=== PATIENT | female | born 1955 | race Caucasian/White ===

== ENCOUNTER → 2017-09-12 | Outpatient (CLI) | payer OTHER, SELFPAY | LOC: M RAD 07:59 | DX: Z12.31 Encounter for screening mammogram for malignant neoplasm of breast (principal) | CPT/HCPCS: 77067 ==

== ENCOUNTER → 2018-09-13 | Outpatient (CLI) | payer OTHER ==
--- NOTE | 2018-09-13 13:01 | REPMRS ---
Patient History The patient states she had a clinical breast exam in 2017. Family history of unknown cancer at age 77 in mother, colorectal cancer at age 60 in maternal aunt, unknown cancer at age 60 in paternal grandfather. Took hormonal contraceptives for 1 year. Digital Mammo Screening Bilat: September 13, 2018 - Exam #: [id number] Bilateral CC and MLO view(s) were taken. Technologist: Davida Wilson, Technologist Prior study comparison: September 12, 2017, bilateral digital mammo screening bilat performed at [facility]. August 04, 2016, left breast digital mammo diagnostic unilateral performed at [facility]. July 11, 2016, digital woman screen mammo, performed at [facility]. July 08, 2015, digital woman screen mammo, performed at [facility]. FINDINGS: There are scattered fibroglandular densities. There is a moderate amount of residual fibroglandular tissue which is fairly symmetric. There is no interval development of dominant mass, architectural distortion, or clustered microcalcification typical of malignancy. There has been no change in the appearance of the mammogram from the prior studies. 3-D tomosynthesis shows no additional findings. Assessment: BI-RADS/ACR category 1 mammogram. Negative. Recommendation Routine screening mammogram of both breasts in 1 year (for women over age 40). This patient's Lifetime Breast Cancer RIsk is estimated at 9.6 %. This mammogram was interpreted with the aid of an FDA-approved computer-aided dectection system. Electronically Signed By: Boby Linda MD 09/13/18 1367
== END ==
LOC: M RAD 10:21
PROVIDERS: ATTEND Internal Medicine
DX: Z12.31 Encounter for screening mammogram for malignant neoplasm of breast (principal); Z80.0 Family history of malignant neoplasm of digestive organs

== ENCOUNTER → 2019-11-04 | Outpatient (CLI) | payer SELFPAY ==
--- NOTE | 2019-11-04 09:27 | REP ---
BILATERAL SCREENING DIGITAL MAMMOGRAM WITH 3D TOMOSYNTHESIS: There are no palpable abnormalities or other breast complaints. The the patient states she had a clinical breast examination May,. The Tyrer-Cuzick Lifetime Breast Cancer Risk Score is: 9.2% . Comparison is 07/08/2015. There are scattered areas of fibroglandular density. There is no dominant mass, micro calcific cluster or architectural distortion that would indicate malignancy. There are no additional findings on 3D tomosynthesiss. There is no change from the prior study. Impression: BIRADS/ACR category 1 mammogram. Negative. Recommendation: Routine annual screening mammography. This mammogram was interpreted with the aid of a FDA approved computer-aided detection system. A. Negative mammogram reports should not delay biopsy if a dominant or clinically suspicious mass is present. B. Not all breast cancers are identified by mammography or tomosynthesis. C. Adenosis and dense breasts may obscure an underlying neoplasm. Patient letter M1. Electronically Signed by Bhanu Turpin MD 11/04/2019 09:19 A
== END ==
LOC: M WHC 07:46
PROVIDERS: ATTEND Internal Medicine
DX: Z12.31 Encounter for screening mammogram for malignant neoplasm of breast (principal)

== ENCOUNTER → 2020-11-06 | Outpatient (CLI) | payer SELFPAY ==
--- NOTE | 2020-11-06 13:46 | REPMRS ---
Patient History The patient states she had a clinical breast exam in 2019. Family history of unknown cancer at age 77 in mother, colorectal cancer at age 60 in maternal aunt, unknown cancer at age 60 in paternal grandfather. Took hormonal contraceptives for 1 year. Digital Woman Screen Mammo: November 06, 2020 - Exam #: [id number] Bilateral CC and MLO view(s) were taken. Technologist: Ade Hernandez, Technologist Prior study comparison: November 04, 2019, bilateral digital woman screen mammo performed at [facility]. September 13, 2018, bilateral digital mammo screening bilat, performed at [facility]. September 12, 2017, bilateral digital mammo screening bilat, performed at [facility]. FINDINGS: There are scattered fibroglandular densities. The Volpara volumetric breast density category is:B. There has been no change in the appearance of the mammogram from the prior studies. There is a mild amount of scattered fibroglandular density which is fairly symmetric. There is no interval development of dominant mass, architectural distortion, or grouped microcalcification suggestive of malignancy. 3-D tomosynthesis shows no additional findings. Assessment: BI-RADS/ACR category 1 mammogram. Negative Mammogram. Recommendation Routine screening mammogram of both breasts in 1 year (for women over age 40). This patient's [facility] Lifetime Breast Cancer Risk is estimated at 8.7 %. This mammogram was interpreted with the aid of an FDA-approved computer-aided dectection system. Electronically Signed By: Boby Linda MD 11/06/20 0504
--- NOTE | 2020-11-06 13:59 | DEXAMM ---
INDICATION: Z13.820 SCR FOR OSTEOPOROSIS. COMPARISON: 03/28/2008. TECHNIQUE: Bone density was measured using dual-energy x-ray absorptiometry (DEXA). FINDINGS: AP SPINE L1-L4 BMD 1.117 g/cm2 Young Adult T-Score -0.5 Age Matched Z-Score 1.1. LT FEMUR, TOTAL BMD 0.817 g/cm2 Young Adult T-Score -1.5 Age Matched Z-Score -0.2. LT NECK BMD 0.827 g/cm2 Young Adult T-Score -1.5 Age Matched Z-Score 0.0. RT FEMUR, TOTAL BMD 0.885 g/cm2 Young Adult T-Score -1.0 Age Matched Z-Score 0.3. RT NECK BMD 0.948 g/cm2 Young Adult T-Score -0.6 Age Matched Z-Score 0.9. IMPRESSION: There is normal bone density of the spine. There is low bone density of the left hip. There is normal bone density of the right hip. The density of the spine has decreased 9.0% since the initial exam on 03/28/2008. The density of the left hip has decreased 14.1% since initial exam on 03/28/2008. The density of the right hip has decreased 9.7% since the initial exam on 03/28/2008. FOLLOW-UP: Recommendation for the next bone density exam: 2 years. <Electronically signed by Bhanu Cormier > 11/06/20 [id number]
== END ==
LOC: M WHC 12:27
PROVIDERS: ATTEND Internal Medicine
DX: Z12.31 Encounter for screening mammogram for malignant neoplasm of breast (principal); Z13.820 Encounter for screening for osteoporosis; Z80.0 Family history of malignant neoplasm of digestive organs; M85.852 Other specified disorders of bone density and structure, left thigh

== ENCOUNTER → 2020-11-18 | Outpatient (REF) | payer SELFPAY | LOC: M LAB REF 16:17 | PROVIDERS: ATTEND Internal Medicine | DX: M15.9 Polyosteoarthritis, unspecified (principal) ==

== ENCOUNTER → 2020-12-03 | Outpatient (CLI) | payer SELFPAY ==
--- NOTE | 2020-12-03 19:15 | REP ---
INDICATION: PAIN. COMPARISON: None. TECHNIQUE: Bilateral hips: AP and frogleg views of the right hip and AP and frog-leg views of the left hip. FINDINGS: Right hip AP and frogleg views: Mineralization is normal. There is joint space narrowing compatible with arthropathy. No osteophytic formation is identified. There is no flattening or deformity of the femoral head. There is no fracture or dislocation. Left hip AP and frog-leg views: There is joint space narrowing. There is no femoral head flattening or deformity. There is no osteophytic formation. There is no fracture or dislocation. IMPRESSION: Bilateral hip nonspecific arthropathy. <Electronically signed by Bhanu Turpin > 12/03/20 [id number]
== END ==
LOC: M WUC 14:56
PROVIDERS: ATTEND Internal Medicine
DX: M25.551 Pain in right hip (principal)

== ENCOUNTER → 2021-01-08 | Outpatient (CLI) | payer SELFPAY ==
[~2021-01-08] MED LIST: ISOVUE-300 61% 50ML VIAL As Ordered ONE; LIDOCAINE 1% MDV 20ML VIAL As Ordered ONE; TRIAMCINOLONE ACETONIDE SUSP 40 MG/ML VIAL (J3301) As Ordered ONE
--- NOTE | 2021-01-08 17:26 | REP ---
INDICATION: OSTEOARTHRITIS RIGHT HIP. COMPARISON: None. TECHNIQUE: The procedure was performed under the direct supervision of Dr. Cormier. The benefits and risks including but not limited to pain infection and bleeding and anaphylaxis were explained to the patient and informed consent was obtained. The right femoral neck was localized using fluoroscopic guidance. The skin was prepped and draped in a sterile fashion. 1% lidocaine was used as a local anesthetic. Using fluoroscopic guidance, and last image hold technology, a 22-gauge spinal needle was inserted and advanced to the femoral neck. 0.5 ml of Isovue-300 was injected to verify placement. Six ml of a solution containing 5 ml of 1% Xylocaine and 1 mL of Kenalog 40 mg mg was injected. The needle was then removed. The patient tolerated the procedure well and there were no immediate complications. Less than 6 seconds of fluoro time was utilized for this procedure. FINDINGS: None IMPRESSION: Fluoro guidance for right hip injection. <Electronically signed by Jacinto Simental > 01/08/21 1514 <Electronically signed by Bhanu Cormier > 01/08/21 [id number]
== END ==
LOC: M RADPRO 10:42
PROVIDERS: ATTEND Physician Assistant
DX: M16.11 Unilateral primary osteoarthritis, right hip (principal)
CPT/HCPCS: 20610; 77002; J3301; Q9967

== ENCOUNTER → 2021-01-29 | Outpatient (CLI) | payer SELFPAY ==
--- NOTE | 2021-01-29 15:45 | REP ---
INDICATION: OSTEOARTHRITIS LEFT HIP. COMPARISON: None TECHNIQUE: The procedure was performed by TIKI Chiu, under the direct supervision of Dr. Cormier. The benefits and risks of the procedure were explained to the patient, and an informed consent was obtained. Directly prior to the start of the procedure, a formal time-out was completed in the procedure room. The left femoral neck joint space was localized using fluoroscopic guidance. The skin was prepped and draped in a sterile fashion. Approximately 5 mL of 1% Lidocaine 10 mg/ml was used as a local anesthetic. Using fluoroscopic guidance, a #22 gauge spinal needle was inserted and advanced into the left femoral neck joint space. Approximately 1 mL of Isovue 300 was injected to verify placement. Six mL of a solution containing 5 mL 1% lidocaine 10 mg/ml and 1 mL Kenalog 40 milligrams/milliliter was injected into the joint space. The needle was removed and hemostasis was achieved. FINDINGS: The patient tolerated the procedure well and there were no immediate complications. IMPRESSION: 1. Fluoroscopic guided left hip intra-articular injection. 0.1 minutes of fluoroscopy time was utilized for this procedure. Some fluoroscopic images are performed with last image hold technology. These images require no additional radiation. <Electronically signed by Gloria Rajput > 01/29/21 1228 <Electronically signed by Bhanu Cormier > 01/29/21 [id number]
== END ==
LOC: M RADPRO 11:43
PROVIDERS: ATTEND Physician Assistant
DX: M16.12 Unilateral primary osteoarthritis, left hip (principal)
CPT/HCPCS: 20610; 77002; J3301; Q9967

== ENCOUNTER → 2021-06-09 | Outpatient (REF) | payer MEDICARE ==
[2021-06-09 17:17] LABS: BACTERIA, URINE AUTO NEGATIVE (NEGATIVE); MUCUS, URINE SMALL (NEGATIVE); RBC, URINE AUTO 0 /HPF (0-3); SQUAMOUS EPITHELIAL CELL UR AU 0 /HPF (0-6); WBC, URINE AUTO 0 /HPF (0-3)
== END ==
LOC: M LAB REF 16:39
PROVIDERS: ATTEND Internal Medicine
DX: R31.9 Hematuria, unspecified (principal)

== ENCOUNTER → 2021-12-07 | Outpatient (CLI) | payer MEDICARE | LOC: M WHC 09:55 | PROVIDERS: ATTEND Internal Medicine | DX: Z12.31 Encounter for screening mammogram for malignant neoplasm of breast (principal) ==

== ENCOUNTER → 2022-12-09 | Outpatient (CLI) | payer MEDICARE | LOC: M WHC 08:37 | PROVIDERS: ATTEND Internal Medicine | DX: Z12.31 Encounter for screening mammogram for malignant neoplasm of breast (principal); M81.0 Age-related osteoporosis without current pathological fracture; Z12.12 Encounter for screening for malignant neoplasm of rectum; M85.851 Other specified disorders of bone density and structure, right thigh; M85.852 Other specified disorders of bone density and structure, left thigh ==

== ENCOUNTER → 2023-12-07 | Outpatient (REF) | payer MEDICARE | LOC: M SFHCDERM 17:43 | PROVIDERS: ATTEND Physician Assistant | DX: L82.1 Other seborrheic keratosis (principal) ==

== ENCOUNTER → 2024-12-23 | Outpatient (CLI) | payer MEDICARE | LOC: M WHC 08:20 | PROVIDERS: ATTEND Internal Medicine | DX: Z12.31 Encounter for screening mammogram for malignant neoplasm of breast (principal); Z13.820 Encounter for screening for osteoporosis; M89.9 Disorder of bone, unspecified; M85.88 Other specified disorders of bone density and structure, other site; M85.851 Other specified disorders of bone density and structure, right thigh; M85.852 Other specified disorders of bone density and structure, left thigh; R92.323 Mammographic fibroglandular density, bilateral breasts ==